=== PATIENT | male | born 1955 | race Caucasian/White ===

== ENCOUNTER 2024-09-30 23:57 | Inpatient (IN) | payer BC ==
[~2024-09-30] VITALS: Ht 182.9 cm; Wt 90.7 kg
[2024-10-01] MEDS ORDERED: ACETAMINOPHEN 650 MG/SUPP.RECT RC ONE (00:36)
[2024-10-01] MEDS: ACETAMINOPHEN 650 MG/SUPP.RECT RC ONE (00:41)
[2024-10-01] MEDS: IV NS 0.9% 1,000 ML BAG IV ONE (00:41)
[2024-10-01 00:48] LABS: CALCIUM, SERUM 8.6 mg/dL (8.5-10.1); CREATININE 1.2 mg/dL (0.6-1.3); SODIUM SERUM 137 mmol/L (136-145); UREA NITROGEN, BLOOD 23 mg/dL (7-18)
[2024-10-01 00:52] LABS: APPEARANCE,URINE CLEAR (CLEAR); BLOOD, URINE NEGATIVE Ery/uL (NEGATIVE); LEUKOCYTE ESTERASE ,URINE NEGATIVE (NEGATIVE); NITRITE, URINE NEGATIVE (NEGATIVE); UGLUCOSE 3+ mg/dL (NEGATIVE)
[2024-10-01 00:53] LABS: PLATELET COUNT (AUTO) 65 K/uL (150-450); RED BLOOD CELL COUNT(AUTO) 5.30 MIL/uL (4.5-6.0); RED CELL DISTRIBUTION WIDTH 17.5 % (11.5-15.0); WHITE BLOOD COUNT (AUTO) 8.5 K/uL (4.3-11.0)
[2024-10-01 00:54] LABS: ASPARTATE AMINOTRANSFERASE 39 U/L (15-37); TOTAL PROTEIN, SERUM 7.1 g/dL (6.4-8.2)
[2024-10-01 01:02] LABS: ADD URINE CULTURE NO; SQUAMOUS EPITHELIAL CELL,UR Few /HPF (None Seen)
[2024-10-01 01:02] LABS: LACTIC ACID 2.0 mmol/L (0.4-2.0)
[2024-10-01 01:15] LABS: BASOPHILS % (MANUAL) 0 % (0.0-2.0); EOSINOPHILS % (MANUAL) 2 % (0-4); LYMPHOCYTES % (MANUAL) 8 % (16-48); MONOCYTES % (MANUAL) 5 % (0-11.0); NEUTROPHILS % (MANUAL) 85 (42-76); PLATELET ESTIMATE DECREASED
[2024-10-01 01:27] LABS: INR 1.3 (0.91-1.10)
[2024-10-01] MEDS ORDERED: CEFTRIAXONE 1GM BAG (ER ONLY) 50 ML IV ONE (02:05)
[2024-10-01] MEDS ORDERED: AZITHROMYCIN 500 MG VIAL ONE (02:05)
[2024-10-01] MEDS: CEFTRIAXONE 1GM BAG (ER ONLY) 1 GM/50 ML PIGGYBACK IV ONE (02:06)
[2024-10-01] MEDS: AZITHROMYCIN 500 MG in IV D5W 250 ML IV ONE (02:34)
[2024-10-01] MEDS ORDERED: ONDANSETRON HCL/PF 4 MG/2 ML VIAL IVP PRN (03:00)
[2024-10-01] MEDS ORDERED: ZOLPIDEM TARTRATE 5 MG TABLET PO PRN (03:00)
[2024-10-01] MEDS ORDERED: ACETAMINOPHEN 325 MG TABLET PO PRN (03:00)
[2024-10-01] MEDS ORDERED: MAG HYDROX/AL HYDROX/SIMETH 30 ML UDC PO PRN (03:00)
[2024-10-01] MEDS ORDERED: Z GUARD REMEDY 4 OZ OINT TP PRN (03:00)
[2024-10-01] MEDS ORDERED: MAGNESIUM HYDROXIDE 30 ML UDC PO PRN (03:00)
[2024-10-01 03:20] VITALS: BP 99/56; TEMP 99.1; O2SAT 97
[2024-10-01] MEDS: IV NS 0.9% 1,000 ML IV PRN (04:06)
[2024-10-01 08:00] VITALS: BP 98/50; TEMP 98.8; O2SAT 98
[2024-10-01] MEDS ORDERED: DEXTROSE 50%-WATER 50 ML DISP.SYRIN IV PRN (08:30)
[2024-10-01] MEDS: PANTOPRAZOLE 40 MG TABLET.DR PO SCH (08:37)
[2024-10-01] MEDS: BLOOD SUGAR DIAGNOSTIC 1 EACH STRIP IN SCH (08:48)
[2024-10-01] MEDS: INSULIN REGULAR, HUMAN 100 UNIT/ML 3 ML VIAL SQ PRN (08:51)
[2024-10-01] MEDS: ENOXAPARIN SODIUM 40 MG/0.4 ML DISP.SYRIN SQ SCH (08:53)
[2024-10-01] MEDS ORDERED: INSU100I30 SQ (09:12)
[2024-10-01] MEDS ORDERED: BLOO-668 IN (09:12)
[2024-10-01] MEDS ORDERED: INSU100I14 SQ (09:12)
[2024-10-01 12:00] VITALS: BP 94/51; TEMP 97.9; O2SAT 97
[2024-10-01 13:52] LABS: IRON, SERUM 33 ug/dl (50-175)
[2024-10-01 16:00] VITALS: BP 90/54; TEMP 97.3; TEMP 97.9; O2SAT 98
[2024-10-01 20:00] VITALS: BP 99/56; TEMP 97.5; O2SAT 98
[2024-10-02] VITALS: BP 108/57; TEMP 98.2; O2SAT 97
[2024-10-02] MEDS: CEFTRIAXONE 1 G in IV D5W 50 ML IV SCH (02:29)
[2024-10-02] MEDS: AZITHROMYCIN 500 MG in IV D5W 250 ML IV SCH (02:29)
[2024-10-02 04:00] VITALS: BP 100/52; TEMP 97.9; O2SAT 96
[2024-10-02 06:07] LABS: HBSAG SCREEN Negative (Negative); HEPATITIS A AB, IgM Negative (Negative); HEPATITIS B CORE AB, IgM Negative (Negative)
[2024-10-02 08:00] VITALS: BP 119/58; TEMP 97.7; O2SAT 97
[2024-10-02 08:18] LABS: PLATELET COUNT (AUTO) 53 K/uL (150-450); RED BLOOD CELL COUNT(AUTO) 5.11 MIL/uL (4.5-6.0); RED CELL DISTRIBUTION WIDTH 17.6 % (11.5-15.0); WHITE BLOOD COUNT (AUTO) 6.1 K/uL (4.3-11.0)
[2024-10-02 08:35] LABS: ASPARTATE AMINOTRANSFERASE 28.0 U/L (15-37); CALCIUM, SERUM 8.3 mg/dL (8.5-10.1); CREATININE 1.1 mg/dL (0.6-1.3); PHOSPHORUS 2.8 mg/dL (2.5-4.9); SODIUM SERUM 137.0 mmol/L (136-145); TOTAL PROTEIN, SERUM 6.3 g/dL (6.4-8.2); UREA NITROGEN, BLOOD 30.0 mg/dL (7-18)
[2024-10-02 11:05] LABS: EOSINOPHILS % (MANUAL) 1 % (0-4); LYMPHOCYTES % (MANUAL) 16 % (16-48); MONOCYTES % (MANUAL) 8 % (0-11.0); NEUTROPHILS % (MANUAL) 75 (42-76); PLATELET ESTIMATE DECREASED
[2024-10-02 12:00] VITALS: BP 121/62; TEMP 97.9; O2SAT 98
[2024-10-02 16:05] VITALS: BP 132/66; TEMP 98.1; O2SAT 97
[2024-10-02 20:00] VITALS: BP 124/62; TEMP 98.4; O2SAT 95
[2024-10-03] VITALS: BP 124/72; TEMP 98.6; O2SAT 96
[2024-10-03 04:00] VITALS: BP 99/47; TEMP 98.4; O2SAT 95
[2024-10-03 07:46] LABS: ASPARTATE AMINOTRANSFERASE 29.0 U/L (15-37); CALCIUM, SERUM 8.8 mg/dL (8.5-10.1); CREATININE 1.1 mg/dL (0.6-1.3); SODIUM SERUM 134.0 mmol/L (136-145); TOTAL PROTEIN, SERUM 6.7 g/dL (6.4-8.2); UREA NITROGEN, BLOOD 28.0 mg/dL (7-18)
[2024-10-03 08:00] VITALS: BP 102/47; TEMP 98.6; O2SAT 97
[2024-10-03 12:00] VITALS: BP 111/57; TEMP 98.4; O2SAT 97
[2024-10-03 16:00] VITALS: BP 129/57; TEMP 98.5; O2SAT 97
[2024-10-03 20:00] VITALS: BP 128/52; TEMP 98.4; O2SAT 97
[2024-10-04] VITALS: BP 127/60; TEMP 98.2; O2SAT 96
[2024-10-04 04:00] VITALS: BP 103/57; TEMP 97.7; O2SAT 99
[2024-10-04] MEDS ORDERED: AMOX-430 PO (07:37)
[2024-10-04 07:54] LABS: ASPARTATE AMINOTRANSFERASE 28.0 U/L (15-37); CALCIUM, SERUM 8.5 mg/dL (8.5-10.1); CREATININE 1.2 mg/dL (0.6-1.3); SODIUM SERUM 135.0 mmol/L (136-145); TOTAL PROTEIN, SERUM 6.5 g/dL (6.4-8.2); UREA NITROGEN, BLOOD 28.0 mg/dL (7-18)
[2024-10-04 08:00] VITALS: BP 117/63; TEMP 98.3; O2SAT 96
== END 2024-10-04 11:32 | disposition home or self-care (01) | DRG 720 ==
LOC: ER 10-01 00:02 → TELE1 10-01 02:54
PROVIDERS: ADMIT Internal Medicine; ATTEND Internal Medicine
DX: A41.9 Sepsis, unspecified organism (principal); G93.41 Metabolic encephalopathy; J18.9 Pneumonia, unspecified organism; D69.6 Thrombocytopenia, unspecified; E11.9 Type 2 diabetes mellitus without complications; B19.20 Unspecified viral hepatitis C without hepatic coma; D50.9 Iron deficiency anemia, unspecified; E80.6 Other disorders of bilirubin metabolism; Z86.19 Personal history of other infectious and parasitic diseases; Z79.4 Long term (current) use of insulin
CPT/HCPCS: 36415; 70450-TC; 71045-TC; 76700-TC; 78226; 80048-TC; 80053-TC; 80076-TC; 81001; 82728-TC; 82962-TC; 83540-TC; 83605-TC; 83735-TC; 84100-TC; 84443-TC; 84484-TC; 85025-TC; 85027-TC; 85730-TC; 87040-TC; 87086-TC; 87186-TC; A4223; A4349; A9537; G0378; J0456; J0696; J1650; J1815; J7030; J7050; J7060